=== PATIENT | female | born 1975 | race Caucasian/White ===

== ENCOUNTER 2018-01-20 05:50 | Day surgery (SDC) | payer BC, MEDICAID ==
[2018-01-19 11:41] LABS: BASOPHILS 0.2 % (0-2); EOSINOPHILS 4.3 % (0-7); HEMATOCRIT 30.4 % (36.0-48.0); HEMOGLOBIN 9.4 g/dL (12-16); LYMPHOCYTES 29.2 % (15-50); MCH 23.6 pg (26.0-34.0); MCHC 30.9 g/dL (31.0-37.0); MCV 76.2 fL (80.0-100.0); MEAN PLATELET VOLUME 8.4 fL (7.4-10.4); MONOCYTES 9.1 % (2-11); NEUTROPHILS 57.2 % (40-80); PLATELET COUNT 363 10x3/uL (130-400); RBC 3.99 10x6/uL (4.00-5.40); RDW 17.1 % (11.5-14.5); WBC 6.2 10x3/uL (4.8-10.8)
[2018-01-20] VITALS (18 sets, daily range): BP systolic 88–105; BP diastolic 50–66; BMI 23.9
--- NOTE | ~2018-01-20 | OP ---
PATIENT NAME: JOCY TAN MEDICAL RECORD: [id number] :75 LOCATION:[facility] ADMISSION DATE: SURGEON: HIPOLITO MEDINA MD DATE OF OPERATION: 01/20/2018 PREOPERATIVE DIAGNOSIS: Fibroid uterus. POSTOPERATIVE DIAGNOSES: 1. Fibroid uterus. 2. Adhesions. PROCEDURES: 1. Diagnostic laparoscopy. 2. Lysis of adhesions. 3. Laparoscopic subtotal hysterectomy with minilaparotomy and bilateral salpingectomy. ANESTHESIOLOGIST: Dalton Bernard MD ANESTHETIC: General anesthetic. SURGEON: Hipolito Medina MD PERSONNEL COUNSELOR: Navi Mathur. FINDINGS: Enlarged uterus with multiple fibroids. There are adhesions of the left adnexa to the sidewall. SPECIMEN REMOVED: Uterus without cervix and bilateral tubes. SPECIMEN DISPOSITION: Pathology. ESTIMATED BLOOD LOSS: 400 cc. FLUIDS: 1400 cc of lactated Ringer's. URINE OUTPUT: 450 clear urine. DRAIN: Regalado to gravity. COMPLICATIONS: None. INDICATIONS: The patient is a 42-year-old female with heavy irregular bleeding. The patient has undergone workup and conservative management. The patient desires definitive treatment. The patient understands the risk of morcellation, so the uterus will be removed via minilaparotomy. DESCRIPTION OF PROCEDURE: After informed consent was assured, the patient was taken to the operating room where anesthetic is obtained. Laparoscope was introduced through an infraumbilical incision. Pneumoperitoneum has developed and accessory ports were placed in the lower quadrant. Through the right lower quadrant, a grasper was used to elevate the tube of the left side. Using a Harmonic scalpel, the attachment of the left tube to the adnexa is severely compressed, coagulated, and . This dissection was carried down over the uteroovarian ligament and round ligaments. The anterior leaf of the broad OPERATIVE REPORT [id number] JOCY TAN ligament is opened. Bladder flap was developed. The posterior leaf is open, the vessel skeletonized. Using a [employer] technology coagulation cutter, the vessels of the left side are compressed, coagulated, and then . The attention was now directed to the right side. Through the left side port, a grasper was inserted and the tube on the right side is elevated. Again, using the Harmonic scalpel, the tissues were compressed, coagulated, and until the tube was removed from its attachments to the adnexa. Dissection was carried over the uteroovarian ligament and round ligaments. The anterior leaf of the broad ligament was opened and the bladder flap developed. The posterior leaf was opened and the vessel skeletonized. Using a [employer] coagulation cutter, vessels were not compressed, coagulated, and on the right. Dissection began on the right and completed on the left of the uterus from the cervix. A reverse cone technique is utilized. Once this has been performed, the uterus was placed in the cul-de-sac. Pneumoperitoneum was released. Middle laparotomy was performed. A scalpel was used to make the incision in the lower abdomen and carry it down to the underlying layer of the fascia. The fascia was opened in the midline and extended laterally. The rectus bellies are now . Peritoneum was entered. The uterus grasped and elevated to the incision site. The uterus was cleared of the incision site and passed to the attendance. A Vicryl was used to reapproximate the fascial incision and a subcuticular stitch is placed on the skin. All port sites were closed in pneumoperitoneum. After inspection of the pelvis by reestablishment of the pneumoperitoneum. All accessory trocars were removed under direct visualization and the primary trocar removed. Sponge, lap, and needle counts correct times 2 at the close of this procedure. TRANSINT:[id number] Voice Confirmation ID: [id number] DOCUMENT ID: [id number] HIPOLITO MEDINA MD at 1250 CC: [id number] DICTATION DATE: 01/26/18 1225 GRAIN BLENDER: 01/26/18 1315 [facility] 01/20/18 [facility] [address] [place] [address]
[~2018-01-20 05:50] MED LIST: KLONOPIN1 MG PO; VALIUM5 MG PO
[2018-01-20 06:38] LABS: HCG URINE NEGATIVE (NEGATIVE)
[2018-01-20] MEDS ORDERED: IBUPROFEN800 MG PO (16:15)
== END 2018-01-20 18:51 | disposition home or self-care (01) ==
LOC: D.OPS 05:50 → D.PAN 08:30 → D.LD 10:40 → D.OPS 18:51
PROVIDERS: Obstetrics & Gynecology
DX: D25.9 Leiomyoma of uterus, unspecified (principal); K66.0 Peritoneal adhesions (postprocedural) (postinfection); F17.200 Nicotine dependence, unspecified, uncomplicated; Z01.812 Encounter for preprocedural laboratory examination